=== PATIENT | female | born 1970 | race Caucasian/White ===

== ENCOUNTER 2023-01-03 11:26 | Outpatient (CLI) | payer OTHER, SELFPAY ==
--- NOTE | 2023-01-03 11:40 | MM_ITS ---
WS: [email or web address] BILATERAL 3D TOMOSYNTHESIS DIGITAL SCREENING MAMMOGRAM WITH CAD CLINICAL INFORMATION: SCREENING HISTORY: Screening mammogram. No current complaints. COMPARISON: Baseline TECHNIQUE: Bilateral CC and MLO. FINDINGS: The breast are composed of extremely dense tissue, which can limit the detection of small underlying mass lesions. Incidental punctate clustered calcifications RIGHT breast. Lucent centered calcifications LEFT breast . 7 mm ovoid nodule 6:00 position LEFT breast may represent an intramammary LEFT node but technically indeterminant without comparisons. Recommend ultrasound LEFT breast at the 6 clock position mid to p osterior depth. MM/[place] [id number] IMPRESSION: BI-RADS: 0-Incomplete: Need additional imaging evaluation FOLLOW UP: Need Additional Imaging Recommend LEFT breast ultrasound.
== END 2023-01-03 11:27 | disposition home or self-care (01) ==
LOC: RAD 11:37
PROVIDERS: PCP Family Medicine; Visit Provider Family Medicine
DX: Z12.31 Encounter for screening mammogram for malignant neoplasm of breast (principal)
CPT/HCPCS: 77063; 77067

== ENCOUNTER 2023-01-27 11:12 | Outpatient (CLI) | payer OTHER, SELFPAY ==
--- NOTE | 2023-01-27 | US_ITS ---
WS: [email or web address] ULTRASOUND BREAST LEFT TECHNIQUE: Ultrasound left breast focused area of concern. CLINICAL INFORMATION: ABNORMAL MAMMO COMPARISON: Mammography January 03, 2023 FINDINGS: Ultrasound LEFT breast at the 6:00 position 4 cm from the nipple. There is an ovoid shadowing hypoech oic lesion measuring 6.4 x 4.3 x 5.1 mm. This is indeterminant and recommend further evaluation with ultrasound-guided biopsy. No other suspicious abnormalities. US/US breast LT limited* [id number] IMPRESSION: BI-RADS 4 suspicious FOLLOW UP: Ultrasound-guided biopsy RECOMMEND FURTHER EVALUATION ULTRASOUND-GUIDED BIOPSY.
== END 2023-01-27 11:13 | disposition home or self-care (01) ==
PROVIDERS: PCP Family Medicine; Visit Provider Family Medicine
DX: R92.8 Other abnormal and inconclusive findings on diagnostic imaging of breast (principal)
CPT/HCPCS: 76642

== ENCOUNTER 2023-02-16 12:43 | Outpatient (CLI) | payer OTHER, SELFPAY ==
--- NOTE | 2023-02-16 12:49 | US_ITS ---
WS: [email or web address] ULTRASOUND-GUIDED LEFT BREAST BIOPSY CLINICAL INFORMATION: MASS OF BREAST COMPARISON: January 27, 2023 FINDINGS: The procedure including risks, benefits, and complications were discussed with the patient who agreed to proceed. Using sterile technique patient was prepped and draped in the usual sterile fashion. Aft er 1% lidocaine utilizing real-time ultrasound guidance 6 14-gauge cores were obtained of the LEFT br east lesion at the 6 o'clock position 4 cm from the nipple. Biopsy clip was not placed per patient's request. No immediate complications. Pathology demonstrates A. Breast, left, at 6:00, 4 cm from nipple, ultrasound-guided biopsy: - Benign breast tissue with fibrocystic and fibroadenomatoid changes with microcalcifications. - No malignancy identified. US/[place] [id number] IMPRESSION: 1. Uncomplicated ultrasound-guided LEFT breast biopsy. 2. The pathology demonstrates Benign breast tissue with fibrocystic and fibroa denomatoid changes with microcalcifications. No malignancy identified. 3. Recommend return to annual screening mammography BI-RADS: 2-Benign FOLLOW UP: 1 Year Follow-up
== END 2023-02-16 12:44 | disposition home or self-care (01) ==
LOC: RAD 12:43
PROVIDERS: PCP Family Medicine; Visit Provider Family Medicine
DX: N63.0 Unspecified lump in unspecified breast (principal)
CPT/HCPCS: 19083; 88305

== ENCOUNTER 2024-12-19 14:08 | Outpatient (CLI) | payer OTHER, SELFPAY ==
--- NOTE | 2024-12-19 14:27 | US_ITS ---
WS: [email or web address] ULTRASOUND-GUIDED RIGHT BREAST BIOPSY ULTRASOUND-GUIDED RIGHT AXILLARY LYMPH NODE. HISTORY: ABNORMAL MAMMOGRAM/MASS OF R BREAST COMPARISON: Outside imaging studies are reviewed including mammograms and ultrasounds from 11/30/2024, 11/23/2024. Procedure, risks and complications are explained to the patient. Medications are reviewed. Consent is obtained. The mass in the RIGHT breast is localized with ultrasound. This is a very subtle area of distortion and decreased echogenicity. Corresponds to the mammographic finding. Skin is cleansed with ChloraPrep and anesthetized with 1% buffered lidocaine. Small dermatome is made. Under sterile conditions mass is biopsied with a 14-gauge Achieve needle. Multiple core biopsies are performed. Material placed in formalin and sent to pathology for review. No complications encountered. Breast tissue marker (Bard ultrasound enhanced ribbon): Single. Additional biopsy performed of the RIGHT axillary lymph node that was described as abnormal. Lymph node has a normal central hilum and cortex. Biopsy was recommended. Biopsy was performed with an 18-gauge needle and placed in formalin. No complications were encountered. Patient left the radiology suite with no complications. Patient is instructed to return to [facility] [place] or call with any concerns. Note: 1. At this time recommend follow-up diagnostic RIGHT mammogram and possible ultrasound to reevaluate the spiculated lesion in the RIGHT breast. The prior imaging studies were outside mammograms and ultrasound. It is necessary at this time to ensure that the biopsy was performed of the lesion under suspicion. This was only a small breast lesion but spiculated and there was a level of suspicion. The possibility of recommending additional imaging at this time was explained to the patient at the time of the biopsy. 2. No malignancy was noted within the lymph node biopsied. 3. Diagnostic mammogram recommended to ensure the clip is in the expected location of the spiculated mass and to reevaluate for possible additional biopsy if necessary. US/[place] [id number] IMPRESSION: 1. Uncomplicated core needle biopsy RIGHT breast mass at 9:00, 8 cm from the n ipple. PATHOLOGY: Benign breast epithelial parenchyma with fragments of benign fibroad ipose connective tissue. Focal adenosis with microcalcifications. No in situ or invasive malignancy. RECOMMENDATION: Additional imaging at this time. See below note. 2. Uncomplicated core needle biopsy RIGHT axillary lymph node. PATHOLOGY: Partially disrupted fragments of benign reactive lymph node tissue. No necrosis or granulomatous inflammation. No malignancy. RECOMMENDATION: See below.
== END 2024-12-19 14:09 | disposition home or self-care (01) ==
LOC: RAD 14:11
PROVIDERS: PCP Family Medicine; Visit Provider Nurse Practitioner Family
DX: R92.8 Other abnormal and inconclusive findings on diagnostic imaging of breast (principal); N60.89 Other benign mammary dysplasias of unspecified breast; N60.21 Fibroadenosis of right breast; R92.0 Mammographic microcalcification found on diagnostic imaging of breast; D36.0 Benign neoplasm of lymph nodes
CPT/HCPCS: 19083; 38505; 76942; 88305

== ENCOUNTER 2025-01-07 11:22 | Outpatient (CLI) | payer OTHER, SELFPAY ==
--- NOTE | 2025-01-07 11:32 | MM_ITS ---
WS: [email or web address] ADDITIONAL VIEWS RIGHT MAMMOGRAM WITH DIGITAL BREAST TOMOSYNTHESIS. RIGHT BREAST ULTRASOUND HISTORY: ABNORMAL MAMMO, follow-up after ultrasound-guided biopsy was negative. COMPARISON: 11/30/2024, 11/23/2024 and 01/03/2023 RIGHT MAMMOGRAM: Spot compression views and true ML with digital breast tomosynthesis and SM. Breast composition: There are scattered areas of fibroglandular density. Reidentified is a slightly spiculated high density mass measuring 7 mm in the posterior lateral RIGHT breast. There is a adjacent biopsy clip. Recent biopsy was performed by ultrasound. The biopsy clip is just external to the mass which may indicate clip migration. There are a few calcifications within this mass also. No interval change. This mass is less concerning on the lateral projections. Also identified is a biopsy clip in a RIGHT lymph node with a fatty hilum. RIGHT BREAST ULTRASOUND 2-D and color Doppler imaging submitted. Ultrasound is performed and the very subtle mass is reidentified with shadowing posteriorly at 9:00 adjacent to the clip. Mass measures 6.6 mm. MM/MM diag RT tomosynthesis [id number] IMPRESSION: BI-RADS: 4 - Suspicious Finding - Biopsy Should Be Considered. FOLLOW UP: Biopsy Recommended 1. Stereotactic biopsy is recommended of the RIGHT breast mass posteriorly ryland r 9:00. This mass was recently biopsied under ultrasound with a negative report for malignancy. Spiculated margins and a few calcifications remain suspicion f or malignancy therefore stereotactic biopsy is now recommended to attempt amado r sampling. 2. No additional lymph node biopsy recommended. Discussed with the patient.
== END 2025-01-07 11:23 | disposition home or self-care (01) ==
PROVIDERS: PCP Family Medicine; Visit Provider Nurse Practitioner Family
DX: N63.11 Unspecified lump in the right breast, upper outer quadrant (principal)
CPT/HCPCS: 76642; 77061; G0279

== ENCOUNTER 2025-01-29 12:36 | Outpatient (CLI) | payer OTHER, SELFPAY ==
--- NOTE | 2025-01-29 12:40 | MM_ITS ---
WS: [email or web address] STEREOTACTIC RIGHT BREAST BIOPSY WITH VACUUM ASSISTANCE HISTORY: RT BR ABNORL MAMMO COMPARISON: 01/07/2025, 11/23/2024, ultrasound 12/19/2024 Procedure, risks and complications were explained to the patient. Medications and prior radiographs are reviewed. RIGHT breast mass is localized in the lateral RIGHT breast posteriorly. Mass is targeted in the craniocaudal projection. The skin is cleansed with ChloraPrep and anesthetized with 1% buffered lidocaine. Deeper soft tissues anesthetized with a combination of lidocaine and epinephrine. Small dermatome is made. Needle advanced into the RIGHT breast. Stereotactic imaging reveals appropriate positioning adjacent to the mass. Multiple vacuum-assisted core biopsies are obtained. No complications were encountered. There were 2 separate biopsies performed. The first collection of soft tissue appeared external to the target. Retargeting and the second collection of biopsies appears appropriate with portion of the mass removed. Post biopsy specimen radiograph performed. Biopsy clip is placed in the cavity. Post imaging reveals good placement of the clip. No migration. Pressures held for approximately 15 minutes. No bleeding. Dressing applied. Patient discharged with no complications. There is no bleeding. With any questions or complications patient is to return. MM/MM surgical specimen RT IMPRESSION: 1. Uncomplicated RIGHT breast stereotactic biopsy. 2. Specimen contains soft tissue. No calcifications were targeted. Pathology: Well differentiated invasive ductal carcinoma. Greatest tumor diamet er 4 mm. Background of ductal carcinoma in situ. Breast prognostic profile will be submitted separately. RECOMMENDATION: Follow-up with breast surgeon and oncology.
--- NOTE | 2025-01-29 12:40 | MM_ITS ---
WS: [email or web address] STEREOTACTIC RIGHT BREAST BIOPSY WITH VACUUM ASSISTANCE HISTORY: ABNORMAL MAMMO, suspicious spiculated mass. Ultrasound biopsy was negative. COMPARISON: 01/07/2025, 11/30/2024, 11/23/2024 Procedure, risks and complications were explained to the patient. Medications and prior radiographs are reviewed. RIGHT breast spiculated mass is located. Masses targeted in the craniocaudal projection. The skin is cleansed with ChloraPrep and anesthetized with 1% buffered lidocaine. Deeper soft tissues anesthetized with a combination of lidocaine and epinephrine. Small dermatome is made. Needle advanced into the RIGHT breast. Stereotactic imaging reveals appropriate positioning at the mass site. Multiple vacuum-assisted core biopsies are obtained. No complications were encountered. 2 separate stereotactic biopsies were performed with separate targeting. The mass does appear smaller after the second biopsy. Post biopsy specimen radiograph does not contain calcification. No significant calcifications noted within the mass. No calcifications were expected. Biopsy clip is placed in the cavity. Post imaging reveals good placement of the clip. No migration. Pressures held for approximately 15 minutes. No bleeding. Dressing applied. Patient discharged with no complications. There is no bleeding. With any questions or complications patient is to return. MM/[place] [id number] IMPRESSION: 1. Uncomplicated RIGHT breast stereotactic biopsy. 2. Numerous specimens collected. Pathology: RECOMMENDATION:
--- NOTE | 2025-01-29 12:40 | MM_ITS ---
WS: [id number] STEREOTACTIC RIGHT BREAST BIOPSY WITH VACUUM ASSISTANCE HISTORY: RT BR ABNORL MAMMO COMPARISON: 01/07/2025, 11/23/2024, ultrasound 12/19/2024 Procedure, risks and complications were explained to the patient. Medications and prior radiographs are reviewed. RIGHT breast mass is localized in the lateral RIGHT breast posteriorly. Mass is targeted in the craniocaudal projection. The skin is cleansed with ChloraPrep and anesthetized with 1% buffered lidocaine. Deeper soft tissues anesthetized with a combination of lidocaine and epinephrine. Small dermatome is made. Needle advanced into the RIGHT breast. Stereotactic imaging reveals appropriate positioning adjacent to the mass. Multiple vacuum-assisted core biopsies are obtained. No complications were encountered. There were 2 separate biopsies performed. The first collection of soft tissue appeared external to the target. Retargeting and the second collection of biopsies appears appropriate with portion of the mass removed. Post biopsy specimen radiograph performed. Biopsy clip is placed in the cavity. Post imaging reveals good placement of the clip. No migration. Pressures held for approximately 15 minutes. No bleeding. Dressing applied. Patient discharged with no complications. There is no bleeding. With any questions or complications patient is to return. MM/[place] [id number] IMPRESSION: 1. Uncomplicated RIGHT breast stereotactic biopsy. 2. Specimen contains soft tissue. No calcifications were targeted. Pathology: Well differentiated invasive ductal carcinoma. Greatest tumor diamet er 4 mm. Background of ductal carcinoma in situ. Breast prognostic profile will be submitted separately. RECOMMENDATION: Follow-up with breast surgeon and oncology.
[2025-02-04 09:28] LABS: Breast Profile ER,PR,HER2,Ki-6 See Report
== END 2025-01-29 12:37 | disposition home or self-care (01) ==
LOC: RAD 12:36
PROVIDERS: PCP Family Medicine; Visit Provider Nurse Practitioner Family
DX: D05.11 Intraductal carcinoma in situ of right breast (principal); R92.311 Mammographic fatty tissue density, right breast; N60.21 Fibroadenosis of right breast; N60.31 Fibrosclerosis of right breast; N60.01 Solitary cyst of right breast
CPT/HCPCS: 19081; 77065; 88305; 88361; 88374